=== PATIENT | male | born 1975 | race Caucasian/White ===

== ENCOUNTER 2016-07-11 18:42 | Emergency (ER) | payer SELFPAY ==
[2016-07-11] MEDS ORDERED: TYLENOL PO ONE (19:25)
[2016-07-11] MEDS ORDERED: MOTRIN PO ONE (22:34)
--- NOTE | 2016-07-11 22:38 | Emergency Department Report ---
- General Chief Complaint: Upper Respiratory Infection Stated Complaint: FEVER/COUGH/CONGESTION/HEADACHE Source: patient, family Mode of arrival: Ambulatory Limitations: Language Barrier - History of Present Illness Initial Comments: 40-year-old male comes in for complaint of fever cough congestion and headache 1 day he does report that he has a sore throat and back pain that he' s had off and on for a while. 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 He has tried no medications to help alleviate his back or his sore throat or headache. Patient is being translated by his girlfriend. Complaint: fever, cough, sore throat - Related Data Allergies Allergy/AdvReac Type Severity Reaction Status Date / Time No Known Allergies Allergy Verified 07/11/16 19:19 ED Review of Systems ROS: Stated complaint: FEVER/COUGH/CONGESTION/HEADACHE Other details as noted in HPI Constitutional: chills, fever ENT: throat pain Respiratory: cough Gastrointestinal: vomiting (times 1) Musculoskeletal: back pain ED Past Medical Hx - Past Medical History Previous Medical History?: No - Surgical History Past Surgical History?: No - Social History Smoking Status: Never Smoker Substance Use Type: Alcohol ED Physical Exam - General Limitations: Language Barrier General appearance: alert, in no apparent distress - Head Head exam: Present: atraumatic, normocephalic - Eye Eye exam: Present: normal appearance, PERRL, EOMI - ENT ENT exam: Present: mucous membranes moist, TM's normal bilaterally - Expanded ENT Exam Expanded Throat exam: Positive: tonsillar erythema, tonsillomegaly. Negative: tonsillar exudate - Neck Neck exam: Present: tenderness, full ROM - Respiratory Respiratory exam: Present: normal lung sounds bilaterally - Cardiovascular Cardiovascular Exam: Present: regular rate, normal rhythm, normal heart sounds - GI/Abdominal GI/Abdominal exam: Present: soft. Absent: distended ED Course Vital Signs 07/11/16 19:19 Temperature 100.5 F H Pulse Rate 111 H Respiratory 20 Rate Blood Pressure 130/91 O2 Sat by Pulse 100 Oximetry ED Medical Decision Making - Medical Decision Making Patient been evaluated by this provider fast track. We will order a rapid strep and a rapid influenza. As well as ibuprofen 800 mg by mouth now. Critical care attestation.: If time is entered above; I have spent that time in minutes in the direct care of this critically ill patient, excluding procedure time. ED Disposition Clinical Impression: URI, acute Disposition: DISCHARGED TO HOME OR SELFCARE Is pt being admited?: No Does the pt Need Aspirin: No Condition: Stable Instructions: Analgesic/Antihistamine/Antitussive/Decongestant (By mouth) Additional Instructions: Her strep test and flu tests were negative. He need to drink plenty of fluids take Tylenol Motrin for the body aches and sore throat he can get over-the- counter cough medicine such as Delsym guaifenesin Mucinex. Return to the emergency room if they're not improving within 2-3 days. Referrals: PRIMARY CAREMD [Primary Care Provider] - 3-5 Days MARISOL DENG MD [Staff Physician] - 3-5 Days Forms: Work/School Release Form(ED)
[2016-07-12 00:05] VITALS: BP 128/90
== END 2016-07-11 23:04 | disposition home or self-care (01) ==
LOC: ED 18:42
DX: J06.9 Acute upper respiratory infection, unspecified (principal)
CPT/HCPCS: 87116; 87400; 87430; 99283